=== PATIENT | male | born 1995 | race Caucasian/White ===

== ENCOUNTER 2016-04-21 13:10 | Inpatient (IN) | payer OTHER ==
[2016-04-21] MEDS ORDERED: NS 1,000 ML IV ONE ×2 (14:06→15:09)
--- NOTE | 2016-04-21 14:06 | EDPHY ---
H & P Time Seen by Provider: 04/21/16 13:58 HPI/ROS: CHIEF COMPLAINT: Arm pain, dark urine. HISTORY OF PRESENT ILLNESS: The patient is a 20-year-old male who presents with bilateral arm pain and swelling. He lifts weights regularly, but did more reps than usual on Tuesday. He developed arm pain and swelling in his bilateral arms on Tuesday and then developed dark "coca-cola colored" urine today. He describes the arm pain as moderate and located at the base of his biceps. It does not radiate. He denies weakness. He denies abd pain, dizziness, urinary difficulty or other complaints at this time. No medications. REVIEW OF SYSTEMS: A complete 10-point review of systems was performed and is negative except for those items mentioned in the HPI. Past Medical/Surgical History: Denies. Social History: [employer] Student, nonsmoker. Smoking Status: Never smoked Physical Exam: General Appearance: Alert, no distress Eyes: Pupils equal and round, no conjunctival pallor or injection ENT, Mouth: Mucous membranes moist Neck: Normal inspection Respiratory: Lungs are clear to auscultation Cardiovascular: Regular rate and rhythm Pulses: Radial pulses 2+ bilaterally Gastrointestinal: Abdomen is soft and non-tender Neurological: A&O, nonfocal, normal gait Skin: Warm and dry, no rash Extremities: Swelling and tenderness over the distal biceps bilaterally, elbow ROM without pain, no forearm swelling or tenderness Psychiatric: Mood and affect normal Constitutional: Initial Vital Signs Temperature (C) 37 C 04/21/16 13:12 Heart Rate 96 04/21/16 13:12 Respiratory Rate 16 04/21/16 13:12 Blood Pressure 146/81 H 04/21/16 13:12 O2 Sat (%) 97 04/21/16 13:12 O2 Delivery Mode Room Air Allergies/Adverse Reactions: No Known Allergies Allergy (Unverified 04/21/16 13:14) Home Medications: Medication Instructions Recorded NK [No Known Home Meds] 04/21/16 Medical Decision Making ED Course/Re-evaluation: This pt presents with likely rhabdo, given excessive muscle pain/swelling and dark urine. An IV was established, and IV NS 1 liter started. CK greater than 30,000, c/w rhabdo. Will require admission for IVF, observation. 1609: Consulted with Dr. Rahman, hospitalist. He accepts admission. Differential Diagnosis: includes though not limited to muscle strain, compartment syndrome, renal failure, neurovasc compromise. - Data Points Laboratory Results: Laboratory Results 04/21/16 14:12 04/22/16 12:00 Medications Given: Discontinued Medications Sodium Chloride (Ns) 1,000 mls @ 0 mls/hr IV ONCE ONE PRN Reason: Wide Open Stop: 04/21/16 14:07 Last Admin: 04/21/16 14:15 Dose: 1,000 mls Sodium Chloride (Ns) 1,000 mls @ 0 mls/hr IV ONCE ONE PRN Reason: Wide Open Stop: 04/21/16 15:10 Last Admin: 04/21/16 15:45 Dose: 1,000 mls Departure - Departure Disposition: [facility] Inpatient Acute Clinical Impression: Rhabdomyolysis Qualifiers: Qualifier Code: (M62.82) Rhabdomyolysis Condition: Fair Report Scribed for: Marielle Lin Report Scribed by: Estuardo Greer Date of Report: 04/21/16 Time of Report: 14:06 Physician Review and Approval Statement: 04/21/16 14:21 Portions of this note were transcribed by a medical referral coordinator. I personally performed a history, physical exam, medical decision making, and confirmed accuracy of information the transcribed note.
[2016-04-21 14:22] LABS: % IMMATURE GRANULYOCYTES 0.3 % (0.0-1.1); ABSOLUTE IMMATURE GRANULOCYTES 0.02 10^3/uL (0.00-0.10); ADD DIFF? NO; ADD MORPH? NO; ADD SCAN? NO; ATYPICAL LYMPHOCYTE FLAG 0 (0-99); FRAGMENT RBC FLAG 0 (0-99); HEMATOCRIT 50.6 % (40.0-51.0); HEMOGLOBIN 17.5 g/dL (13.7-17.5); LEFT SHIFT FLG 0 (0-99); LIPEMIA HEMOLYSIS FLAG 90 (0-99); MEAN CELL HEMOGLOBIN 30.3 pg (27.9-34.1); MEAN CELL HEMOGLOBIN CONCENTR. 34.6 g/dL (32.4-36.7); MEAN CELL VOLUME 87.7 fL (81.5-99.8); MEAN PLATELET VOLUME 9.4 fL (8.7-11.7); PLATELET CLUMPS FLAG 0 (0-99); PLATELET COUNT 224 10^3/uL (150-400); RED BLOOD CELL COUNT 5.77 10^6/uL (4.40-6.38); RED CELL DISTRIBUTION WIDTH 11.8 % (11.5-15.2)
[2016-04-21 14:45] LABS: ANION GAP 10 mEq/L (8-16); CALCIUM 9.1 mg/dL (8.5-10.4); CARBON DIOXIDE 29 mEq/l (22-31); CHLORIDE 104 mEq/L (97-110); CREATININE 0.9 mg/dL (0.7-1.3); GLOMERULAR FILTRATION RATE > 60; GLUCOSE 84 mg/dL (70-100); POTASSIUM 4.6 mEq/L (3.5-5.2); SODIUM 143 mEq/L (134-144)
[2016-04-21 15:59] LABS: CK-MB INTERPRETATION NEGATIVE (NEGATIVE)
[2016-04-21] MEDS ORDERED: oxyCODONE IR 5 MG TAB PO PRN (16:29)
[2016-04-21] MEDS ORDERED: ONDANSETRON 4 MG/2 ML VIAL IVP PRN (16:29)
[2016-04-21] MEDS ORDERED: ONDANSETRON DISINTEGRATING 4 MG TAB PO PRN (16:29)
--- NOTE | 2016-04-21 17:18 | GHP ---
[f rep st] HISTORY AND PHYSICAL DATE OF ADMISSION: 04/21/2016 HISTORY OF PRESENT ILLNESS: The patient is a 20-year-old gentleman with no past medical history, who did a strenuous upper body workout 3 days prior to admission. He is in [employer] and getting ready basic training coming up in the spring. He experienced biceps swelling and soreness, saw Physical therapy who advised him to look out for Coca-Cola colored urine, which he experienced this morning and sough t care. He had an elevated CK. He denies stimulant use. He has had no trauma to his biceps, no fever, chills, cough, nausea, vomiti ng or diarrhea. REVIEW OF SYSTEMS: Complete 10-point review of systems conducted, negative except as noted in HPI. PAST MEDICAL HISTORY: None. ALLERGIES: None. HOME MEDICATIONS: None. FAMILY HISTORY: Notable for hypertension. SOCIAL HISTORY: No tobacco. No alcohol. He is in [employer]. He is a student at . He is originally [place], grew up in [place]. PHYSICAL EXAM: VITAL SIGNS: Temperature 37, blood pressure 146/81, pulse 96, breathing 16 times a m inute, 97 on room air. GENERAL: No acute distress. HEENT: Sclerae anicteric. Oropharynx clear. Mucous membranes moist. NECK: Supple. Without lymphadenopathy or JVD. LUNGS: Clear to auscultati on bilaterally. HEART: S1, S2. Not tachycardic. ABDOMEN: Soft, nontender, nondistended. LOWER E XTREMITIES: No edema. His bilateral biceps are swollen. There is good cap refill in the hands, rad ial pulse is 2+ bilaterally. LABS: White count 7.5, hematocrit 50.6, platelets 224,000. Chem 7 is normal. BUN and creatinine ar e 17 and 0.9. CK is greater than 30,000. There is no imaging. I have discussed the case Dr. Marielle Lin. ASSESSMENT AND PLAN: A 20-year-old gentleman with rhabdomyolysis with intact kidney function. 1. Rhabdomyolysis. The etiology of this is overzealous workup. I have provided normal saline at 20 0 cc an hour and pain with Tylenol and p.r.n. oxycodone. Will hold NSAIDs, which he had been taking previously. We will repeat CK in the morning. Advised the patient that he may be in the hospital lo nger than 24 hours. 2. Prophylaxis. Pharmacologic prophylaxis is not indicated in this young low-risk patient. 3. Disposition: Observation status. 4. Pain: Scheduled Tylenol, p.r.n. oxycodone. /[id number]/MODL
[2016-04-21] MEDS ORDERED: ACETAMINOPHEN 325 MG TAB PO SCH (22:00)
[2016-04-21] MEDS: ACETAMINOPHEN 500 MG TAB PO SCH (22:58)
[2016-04-21] MEDS: NS 1,000 ML IV SCH (23:25)
[2016-04-22] MEDS: ACETAMINOPHEN 500 MG TAB PO SCH ×3 (05:34→21:46)
[2016-04-22 05:44] LABS: ANION GAP 6 mEq/L (8-16); CALCIUM 8.3 mg/dL (8.5-10.4); CARBON DIOXIDE 25 mEq/l (22-31); CHLORIDE 111 mEq/L (97-110); CREATININE 0.9 mg/dL (0.7-1.3); GLOMERULAR FILTRATION RATE > 60; GLUCOSE 95 mg/dL (70-100); POTASSIUM 4.5 mEq/L (3.5-5.2); SODIUM 142 mEq/L (134-144)
--- NOTE | 2016-04-22 08:42 | HOSPPROG ---
Hospitalist Progress Note Assessment/Plan: Patient is a 20-year-old male with no significant past medical history. He did strenuous upper body workout 3 days prior to admission. He experienced significant by swelling and soreness. Today is my 1st encounter with the patient. Chart reviewed. #. Rhabdomyolysis * CPK remains elevated at greater than 30,000 * kidney function is stable. * Will continue aggressive hydration * Calcium is stable * does not need bicarb added to his fluids at this time / will recheck his labs later this afternoon #. plan. He will need another midnight stay to monitor his kidney function closely. A surgical consult is not warranted at this time. Will continue careful watching Subjective: patient is not complaining of any pain in his biceps area. states that his urine is clear Objective: Vital Signs Temp Pulse Resp BP Pulse Ox 36.7 C 54 L 16 132/85 H 98 04/22/16 07:30 04/22/16 07:30 04/22/16 07:30 04/22/16 07:30 04/22/16 07:30 Laboratory Results 04/22/16 04:30 04/21/16 04/22/16 04/23/16 05:59 05:59 05:59 Intake Total 4419 Balance 4419 - Physical Exam Constitutional: no apparent distress, appears nourished, not in pain Eyes: PERRL Ears, Nose, Mouth, Throat: hearing normal Cardiovascular: regular rate and rhythym, no murmur, rub, or gallop Respiratory: no respiratory distress, no rales or rhonchi Gastrointestinal: soft, non-tender abdomen Skin: warm, other ( bilateral biceps area is swollen but skin is not taut, ) Neurologic: AAOx3 Psychiatric: interacting appropriately, not anxious ICD10 Worksheet Patient Problems: Problems Problem Status Diagnosed Rhabdomyolysis Acute
[2016-04-22] MEDS: NS 1,000 ML IV SCH ×3 (09:05→21:47)
[2016-04-22 09:18] LABS: CK-MB INTERPRETATION NEGATIVE (NEGATIVE)
[2016-04-22 12:41] LABS: ANION GAP 6 mEq/L (8-16); CALCIUM 8.6 mg/dL (8.5-10.4); CARBON DIOXIDE 28 mEq/l (22-31); CHLORIDE 109 mEq/L (97-110); CREATININE 0.7 mg/dL (0.7-1.3); GLOMERULAR FILTRATION RATE > 60; GLUCOSE 65 mg/dL (70-100); POTASSIUM 4.3 mEq/L (3.5-5.2); SODIUM 143 mEq/L (134-144)
[2016-04-22 13:46] LABS: CK-MB INTERPRETATION NEGATIVE (NEGATIVE)
[2016-04-23 05:11] LABS: ANION GAP 6 mEq/L (8-16); CALCIUM 8.2 mg/dL (8.5-10.4); CARBON DIOXIDE 21 mEq/l (22-31); CHLORIDE 116 mEq/L (97-110); CREATININE 0.7 mg/dL (0.7-1.3); GLOMERULAR FILTRATION RATE > 60; GLUCOSE 85 mg/dL (70-100); POTASSIUM 4.4 mEq/L (3.5-5.2); SODIUM 143 mEq/L (134-144)
[2016-04-23] MEDS: ACETAMINOPHEN 500 MG TAB PO SCH ×3 (06:07→22:13)
[2016-04-23 11:20] LABS: CK-MB INTERPRETATION NEGATIVE (NEGATIVE)
--- NOTE | 2016-04-23 12:02 | HOSPPROG ---
Hospitalist Progress Note Assessment/Plan: Patient is a 20-year-old male with no significant past medical history. He did strenuous upper body workout 3 days prior to admission. He experienced significant by swelling and soreness. #. Rhabdomyolysis * CPK remains elevated at greater than 30,000 * kidney function is stable. * Will continue aggressive hydration * Calcium is stable * continue supportive treatment * biceps have less swelling * #. plan. He will need another midnight stay to monitor his kidney function closely. CPK remains elevated/ explained to patient and his family; this could take several days. Subjective: Delmar is not c/o pain. Objective: Vital Signs Temp Pulse Resp BP Pulse Ox 36.6 C 51 L 16 131/67 H 99 04/23/16 07:38 04/23/16 07:38 04/23/16 07:38 04/23/16 07:38 04/23/16 07:38 Laboratory Results 04/23/16 04:39 04/22/16 04/23/16 04/24/16 05:59 05:59 05:59 Intake Total 3915 Balance 3915 - Physical Exam Constitutional: no apparent distress, appears nourished, not in pain Eyes: anicteric sclera Ears, Nose, Mouth, Throat: hearing normal Cardiovascular: regular rate and rhythym, no murmur, rub, or gallop Respiratory: no respiratory distress Gastrointestinal: normoactive bowel sounds Skin: warm, normal color, other (biceps bilaterally with less swelling) Musculoskeletal: full muscle strength Neurologic: AAOx3, sensation intact bilaterally Psychiatric: interacting appropriately, not anxious ICD10 Worksheet Patient Problems: Problems Problem Status Diagnosed Rhabdomyolysis Acute
[2016-04-23] MEDS: NS 1,000 ML IV SCH ×2 (13:56→22:12)
[2016-04-24] MEDS: NS 1,000 ML IV SCH ×5 (03:04→19:00)
[2016-04-24] MEDS: ACETAMINOPHEN 500 MG TAB PO SCH ×2 (05:05→15:04)
[2016-04-24 05:51] LABS: ANION GAP 7 mEq/L (8-16); CALCIUM 8.6 mg/dL (8.5-10.4); CARBON DIOXIDE 26 mEq/l (22-31); CHLORIDE 110 mEq/L (97-110); CREATININE 0.8 mg/dL (0.7-1.3); GLOMERULAR FILTRATION RATE > 60; GLUCOSE 75 mg/dL (70-100); POTASSIUM 4.1 mEq/L (3.5-5.2); SODIUM 143 mEq/L (134-144)
[2016-04-24 06:13] LABS: CK-MB INTERPRETATION NEGATIVE (NEGATIVE); CREATINE KINASE-MB FRACTION 7.37 ng/mL (0-3.19)
--- NOTE | 2016-04-24 12:17 | HOSPPROG ---
Hospitalist Progress Note Assessment/Plan: Patient is a 20-year-old male with no significant past medical history. He did strenuous upper body workout 3 days prior to admission. He experienced significant by swelling and soreness. #. Rhabdomyolysis * CPK remains elevated at greater than 30,000 * kidney function is stable. * Will continue aggressive hydration * Calcium is stable * continue supportive treatment * biceps have no swelling/ appear back to baseline * have asked the lab to dilute the CPK so I can evaluate if he is actually trending down #. plan. He will need another midnight stay to monitor his kidney function closely. CPK remains elevated/ explained to patient and his family; this could take several days. Subjective: Delmar is feeling well today. Objective: Vital Signs Temp Pulse Resp BP Pulse Ox 36.6 C 69 16 135/87 H 98 04/24/16 08:00 04/24/16 08:00 04/24/16 08:00 04/24/16 08:00 04/24/16 08:00 Laboratory Results 04/24/16 04:15 04/23/16 04/24/16 04/25/16 05:59 05:59 05:59 Intake Total 3915 5895 951 Output Total 2500 Balance 3915 3395 951 - Physical Exam Constitutional: no apparent distress, appears nourished, not in pain Eyes: PERRL Ears, Nose, Mouth, Throat: hearing normal Respiratory: no respiratory distress Gastrointestinal: normoactive bowel sounds Skin: warm, normal color Musculoskeletal: other ( Swelling in his arms has resolved/ especially in the biceps area) Neurologic: AAOx3, sensation intact bilaterally Psychiatric: interacting appropriately, not anxious ICD10 Worksheet Patient Problems: Problems Problem Status Diagnosed Rhabdomyolysis Acute
[2016-04-24] MEDS: FLUTICASONE NASAL 120 SPRAYS/16 GM MDI EACHNARE PRN ×2 (15:38→23:13)
[2016-04-25] MEDS: NS 1,000 ML IV SCH ×6 (00:47→21:57)
[2016-04-25 06:01] LABS: ANION GAP 8 mEq/L (8-16); CALCIUM 8.6 mg/dL (8.5-10.4); CARBON DIOXIDE 27 mEq/l (22-31); CHLORIDE 111 mEq/L (97-110); CREATININE 0.7 mg/dL (0.7-1.3); GLOMERULAR FILTRATION RATE > 60; GLUCOSE 81 mg/dL (70-100); POTASSIUM 3.9 mEq/L (3.5-5.2); SODIUM 146 mEq/L (134-144)
[2016-04-25 07:34] LABS: CK-MB INTERPRETATION NEGATIVE (NEGATIVE)
[2016-04-25 07:35] LABS: CREATINE KINASE-MB FRACTION 4.04 ng/mL (0-3.19)
--- NOTE | 2016-04-25 09:29 | HOSPPROG ---
Hospitalist Progress Note Assessment/Plan: Patient is a 20-year-old male with no significant past medical history. He did strenuous upper body workout 3 days prior to admission. He experienced significant by swelling and soreness. #. Rhabdomyolysis * CPK is improving/ asked lab to dilute again today * kidney function is stable. * Will continue aggressive hydration * Calcium is stable * continue supportive treatment * biceps have no swelling/ appear back to baseline #. plan. He will need another midnight stay to monitor his kidney function closely. Subjective: Delmar has no complaints/ feels well. Objective: Vital Signs Temp Pulse Resp BP Pulse Ox 36.5 C 67 16 104/72 96 04/25/16 07:39 04/25/16 07:39 04/25/16 07:39 04/25/16 07:39 04/25/16 07:39 Laboratory Results 04/25/16 04:24 04/24/16 04/25/16 04/26/16 05:59 05:59 05:59 Intake Total 5895 5853 Output Total 2500 Balance 3395 5853 - Physical Exam Constitutional: no apparent distress, appears nourished, not in pain Eyes: PERRL Ears, Nose, Mouth, Throat: hearing normal Respiratory: no respiratory distress Gastrointestinal: normoactive bowel sounds Skin: warm Musculoskeletal: other (bicep area with swelling/ back to baseline) Neurologic: AAOx3, sensation intact bilaterally Psychiatric: interacting appropriately, not anxious ICD10 Worksheet Patient Problems: Problems Problem Status Diagnosed Rhabdomyolysis Acute
[2016-04-25] MEDS: FLUTICASONE NASAL 120 SPRAYS/16 GM MDI EACHNARE PRN (21:58)
[2016-04-26] MEDS: NS 1,000 ML IV SCH ×6 (02:30→19:17)
[2016-04-26 05:40] LABS: ANION GAP 6 mEq/L (8-16); CALCIUM 8.8 mg/dL (8.5-10.4); CARBON DIOXIDE 28 mEq/l (22-31); CHLORIDE 109 mEq/L (97-110); CREATININE 0.7 mg/dL (0.7-1.3); GLOMERULAR FILTRATION RATE > 60; GLUCOSE 83 mg/dL (70-100); POTASSIUM 4.2 mEq/L (3.5-5.2); SODIUM 143 mEq/L (134-144)
[2016-04-26 06:16] LABS: CK-MB INTERPRETATION NEGATIVE (NEGATIVE)
--- NOTE | 2016-04-26 10:16 | HOSPPROG ---
Hospitalist Progress Note Assessment/Plan: Patient is a 20-year-old male with no significant past medical history. He did strenuous upper body workout 3 days prior to admission. He experienced significant by swelling and soreness. #. Rhabdomyolysis * CPK is improving steadily * met with the patient with Dr Rahman/ plan discussed * kidney function is stable. #. plan. most likely dc later today/ need to be sure he has close f/u. Subjective: Delmar is feeling well/ no complaints. Objective: Vital Signs Temp Pulse Resp BP Pulse Ox 36.7 C 63 18 120/68 94 04/26/16 07:23 04/26/16 07:23 04/26/16 07:23 04/26/16 07:23 04/26/16 07:23 Laboratory Results 04/26/16 04:16 04/25/16 04/26/16 04/27/16 05:59 05:59 05:59 Intake Total 5853 6396 514 Output Total 6300 Balance 5853 96 514 - Physical Exam Constitutional: no apparent distress, appears nourished, not in pain Eyes: PERRL Ears, Nose, Mouth, Throat: moist mucous membranes, hearing normal Respiratory: no respiratory distress Skin: warm, normal color Musculoskeletal: full muscle strength, no muscle tenderness Neurologic: AAOx3, sensation intact bilaterally Psychiatric: interacting appropriately ICD10 Worksheet Patient Problems: Problems Problem Status Diagnosed Rhabdomyolysis Acute
[2016-04-26 14:42] LABS: CK-MB INTERPRETATION NEGATIVE (NEGATIVE)
[2016-04-26] MEDS: FLUTICASONE NASAL 120 SPRAYS/16 GM MDI EACHNARE PRN (22:28)
[2016-04-27] MEDS: NS 1,000 ML IV SCH ×2 (00:02→04:21)
[2016-04-27 00:17] VITALS: RESP 12
[2016-04-27 05:53] LABS: ANION GAP 8 mEq/L (8-16); CALCIUM 8.5 mg/dL (8.5-10.4); CARBON DIOXIDE 25 mEq/l (22-31); CHLORIDE 111 mEq/L (97-110); CREATININE 0.7 mg/dL (0.7-1.3); GLOMERULAR FILTRATION RATE > 60; GLUCOSE 83 mg/dL (70-100); POTASSIUM 3.9 mEq/L (3.5-5.2); SODIUM 144 mEq/L (134-144)
[2016-04-27 06:37] LABS: CK-MB INTERPRETATION NEGATIVE (NEGATIVE)
[2016-04-27 07:38] VITALS: BP 124/76; PULSE 65; TEMP 97.8; O2SAT 99
--- NOTE | 2016-04-27 08:30 | HOSPPROG ---
Hospitalist Progress Note Assessment/Plan: Patient is a 20-year-old male with no significant past medical history. He did strenuous upper body workout 3 days prior to admission. He experienced significant by swelling and soreness. #. Rhabdomyolysis * CPK is much improved * has f/u with [facility] this weds/ spoke with the director and she has arranged f/u #. plan. dc Subjective: Delmar has no complaints. Objective: Vital Signs Temp Pulse Resp BP Pulse Ox 36.6 C 65 12 124/76 H 99 04/27/16 07:36 04/27/16 07:36 04/27/16 07:36 04/27/16 07:36 04/27/16 07:36 Laboratory Results 04/27/16 04:20 04/26/16 04/27/16 04/28/16 05:59 05:59 05:59 Intake Total 6396 7759 Output Total 6300 5550 Balance 96 2209 - Physical Exam Constitutional: no apparent distress, appears nourished, not in pain Eyes: PERRL Ears, Nose, Mouth, Throat: hearing normal Respiratory: no respiratory distress Skin: warm Musculoskeletal: full muscle strength Neurologic: AAOx3 Psychiatric: interacting appropriately ICD10 Worksheet Patient Problems: Problems Problem Status Diagnosed Rhabdomyolysis Acute
--- NOTE | 2016-04-27 09:11 | GDS ---
[f rep st] DISCHARGE SUMMARY DISCHARGE DIAGNOSIS: Rhabdomyolysis. BRIEF HISTORY: The patient is a very delightful 20-year-old male who has no significant past medical history. He did a strenuous upper body workout 3 days prior to admission. 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 He experienced biceps as well as forearm soreness. He saw a physical therapist who advised him to look out for dark-colored urine, which he did experience. He came to the emergency room, and it was noted that his CPK was elevated. At that time, it was greater than 30,000. I asked for the lab to dilute his CPK results, and it was initially greater than 96,000. HOSPITAL COURSE: He was treated with aggressive IV hydration. He never went into any type of renal failure. His potassium and calcium were stable throughout his stay. Today on discharge his CPK is 6368. He has a followup appointment at [facility] on TuesdayApril 28 for further followup. CONDITION AT DISCHARGE: Stable. Blood pressure is [birth year]20/1976, heart rate is 65, respiratory rate is 12, O2 sats on room air 99%, temperature is 36.6 Celsius. MEDICATIONS AT DISCHARGE: To continue his Flonase. DISCHARGE INSTRUCTIONS: 1. Follow up tomorrow afternoon at 1:00. He has an appointment with Dr. Smith at [facility]. 2. Get his chemistry and CPK checked at that time. 3. I am recommending that he take it easy for the next 2 weeks. He is fine to ride his bike and carry his backpack, but no intense workouts. 4. Stay well hydrated. Greater than 30 minutes at discharging and coordinating care. /[id number]/MODL MTDD
== END 2016-04-27 09:23 | disposition home or self-care (01) | DRG 558 ==
LOC: INTOOBSV 16:17 → F3E 17:29 → OBSVTOIN 04-22 14:51
PROVIDERS: ADMIT Internal Medicine; ATTEND Internal Medicine
DX: M62.82 Rhabdomyolysis (principal)
CPT/HCPCS: G0378